=== PATIENT | female | born 1965 | race Two or more races ===

== ENCOUNTER 2017-03-25 08:30 | Emergency (ER) | payer OTHER ==
[~2017-03-25] VITALS: Ht 139.7 cm; Wt 59.0 kg
[2017-03-25 09:24] LABS: ADD MIUA? YES; BILIRUBIN NEGATIVE; BLOOD LARGE; COLOR YELLOW ((YELLOW)); GLUCOSE (STRIP) 150; KETONES NEGATIVE; LEUKOCYTES NEGATIVE; NITRITE NEGATIVE; PROTEIN (STRIP) 30; SPECIFIC GRAVITY 1.014 (1.000-1.030); UROBILINOGEN 0.2 MG/DL (0.2-1.0)
[2017-03-25 09:29] LABS: EOSINOPHIL (%) 0.2 % (0-5); HEMATOCRIT 37.3 % (36.0-46.0); IMMATURE GRANULOCYTE (%) 0.5 % (0.0-0.7); IMMATURE GRANULOCYTE COUNT 0.1 K/uL; INSTRUMENT ABS NEUTROPHIL CT 8.5 K/uL; LYMPHOCYTE COUNT 1.1 K/uL (1.0-2.8); MCH 31.7 PG (29.0-34.0); MCHC 33.2 G/DL (30.0-36.0); MCV 95.4 FL (83-99); MEAN PLAT.VOLUME 9.4 uM^3 (9.5-12.4); MONOCYTE COUNT 0.4 K/uL (0-0.8); NEUTROPHIL (%) 83.9 % (45-76); NEUTROPHIL COUNT 8.5 K/uL (1.8-6.4); PLATELET COUNT 210 K/uL (156-360); RBC DIS.WIDTH-CV 12.8 % (11.8-14.6); RBC DIS.WIDTH-SD 44.6 % (39-53); RED BLOOD COUNT 3.91 M/uL (3.80-5.20); WHITE BLOOD COUNT 10.1 K/uL (4.1-10.2)
[2017-03-25 09:39] LABS: BACTERIA NONE SEEN /HPF; EPITHELIAL CELLS 2+ /HPF; MUCUS TRACE /LPF; RED BLOOD CELLS TNTC /HPF (0-5); UCUL ADDED? YES; WHITE BLOOD CELLS 0-5 /HPF (0-5)
[2017-03-25 09:50] LABS: CHLORIDE 103 mEq/L (99-109); SODIUM 140 mEq/L (136-147)
[2017-03-25 09:52] LABS: GLUCOSE 150 mg/dL (70-99)
[2017-03-25 09:54] LABS: ANION GAP 13 MEQ/L (2-14); TOTAL BILIRUBIN 0.5 mg/dL (0.0-1.0)
[2017-03-25 09:56] LABS: ALKALINE PHOSPHATASE 81 IU/L (3-129); GFR ESTIMATE (CALCULATED) > 59 mL/min/
[2017-03-25 09:57] LABS: UREA NITROGEN (BUN) 15 mg/dL (9-23)
[2017-03-25 10:06] LABS: QUANTITATIVE HCG < 4.0 MIU/ML
[2017-03-25] MEDS ORDERED: ZOFRAN ODT4 MG PO (12:05)
[2017-03-25] MEDS ORDERED: NAPROXEN500 MG PO (12:05)
[2017-03-25] MEDS ORDERED: FLOMAX0.4 MG PO (12:05)
[2017-03-25 12:22] VITALS: BP 136/86
== END 2017-03-25 12:31 | disposition home or self-care (01) ==
LOC: EME 08:30
PROVIDERS: Physician Assistant
DX: N13.2 Hydronephrosis with renal and ureteral calculous obstruction (principal); R11.2 Nausea with vomiting, unspecified; R31.9 Hematuria, unspecified
CPT/HCPCS: 74176; 80053; 81003; 84702; 85025; 87086; 99281; 99284; J1885; J7120